=== PATIENT | female | born 1950 | race African-American/Black ===

== ENCOUNTER 2023-11-08 22:53 | Inpatient (IN) | payer MEDICARE, OTHER, SELFPAY ==
[2023-11-08] MEDS ORDERED: Morphine 4 MG/ML VIAL ONE (23:54)
[2023-11-08] MEDS ORDERED: Ondansetron PF 4 MG/2 ML Vial ONE (23:54)
[2023-11-09 00:50] LABS: ALT (SGPT) 11 U/L (8-55); AST (SGOT) 25 U/L (5-34); Albumin 3.7 g/dL (3.4-4.8); Alkaline Phosphatase 80 U/L (40-110); Anion Gap 14 mmol/L (10-20); BUN (Urea Nitrogen) 22 mg/dL (9.8-20.1); Bilirubin, Total 0.4 mg/dL (0.2-1.2); Calc. Creatinine Clearance 0 mL/min (70-130); Calcium 9.4 mg/dL (7.8-10.44); Carbon Dioxide 21 mmol/L (23-31); Chloride 108 mmol/L (98-107); Estimated GFR 44; Globulin 3.7 g/dL (2.4-3.5); Glucose 171 mg/dL (83-110); Protein, Total 7.4 g/dL (5.8-8.1); Sodium 139 mmol/L (136-145)
[2023-11-09 01:10] LABS: #Basophils 0.04 10x3/uL (0.0-0.2); %Basophils 0.3 % (0.0-1.0); %Lymphocytes 18.2 % (21.0-51.0); %Monocytes 3.7 % (0.0-10.0); %Neutrophils 76.6 % (42.0-75.0); Hematocrit 29.9 % (36.0-47.0); Hemoglobin 9.7 g/dL (12.0-16.0); Mean Corpuscular HGB CONC 32.4 g/dL (32.0-36.0); Mean Corpuscular Hemoglobin 26.4 pg (27.0-31.0); Mean Corpuscular Volume 81.5 fL (78.0-98.0); Mean Platelet Volume 10.3 fL (7.4-10.4); Platelet Count 131 10x3/uL (130-400); RBC Distribution Width 14.6 % (11.5-14.5); Red Blood Cell (RBC) Count 3.67 mill/uL (4.20-5.40)
[2023-11-09] MEDS ORDERED: Ondansetron PF 4 MG/2 ML Vial IVP PRN ×2 (02:30→02:34)
[2023-11-09] MEDS ORDERED: Morphine 4 MG/ML VIAL SLOW IVP PRN ×2 (02:30→02:34)
[2023-11-09] MEDS ORDERED: Ondansetron ODT 4 MG TAB SL PRN (02:30)
[2023-11-09] MEDS ORDERED: Ondansetron ODT 4 MG TAB PO PRN (02:34)
[2023-11-09] MEDS ORDERED: hydrALAZINE 20 MG/ML VIAL SLOW IVP PRN (02:34)
[2023-11-09] MEDS: Lactated Ringer's 1,000 ML IV SCH (03:00)
[2023-11-09 05:09] VITALS: BMI 21879.1
[2023-11-09 06:03] LABS: #Basophils Less than 0.03 10x3/uL (0.0-0.2); #Eosinphils Less than 0.03 10x3/uL (0.0-0.7); %Basophils 0.2 % (0.0-1.0); %Monocytes 2.4 % (0.0-10.0); Hematocrit 28.7 % (36.0-47.0); Hemoglobin 9.3 g/dL (12.0-16.0); Mean Corpuscular HGB CONC 32.4 g/dL (32.0-36.0); Mean Corpuscular Hemoglobin 26.3 pg (27.0-31.0); Mean Corpuscular Volume 81.3 fL (78.0-98.0); Mean Platelet Volume 10.7 fL (7.4-10.4); Platelet Count 216 10x3/uL (130-400); RBC Distribution Width 14.5 % (11.5-14.5); Red Blood Cell (RBC) Count 3.53 mill/uL (4.20-5.40)
[2023-11-09 06:20] LABS: Anion Gap 16 mmol/L (10-20); BUN (Urea Nitrogen) 26 mg/dL (9.8-20.1); Calc. Creatinine Clearance 38 mL/min (70-130); Carbon Dioxide 19 mmol/L (23-31); Chloride 106 mmol/L (98-107); Estimated GFR 42; Glucose 318 mg/dL (83-110); Potassium 4.4 mmol/L (3.5-5.1)
[2023-11-09 06:33] LABS: Sodium 137 mmol/L (136-145)
[2023-11-09] MEDS ORDERED: Dextrose 50% Abboject 50 ML SYRINGE SLOW IVP PRN (07:48)
[2023-11-09] MEDS ORDERED: Glucagon 1 MG/ML KIT IM PRN (07:48)
[2023-11-09] MEDS ORDERED: Dextrose 5% in Water 1,000 ML IV PRN (07:48)
[2023-11-09 08:34] LABS: Prothrombin Time 13.5 sec (12.0-14.7)
[2023-11-09] MEDS ORDERED: Levothyroxine Sodium 88 MCG TAB PO SCH (09:00)
[2023-11-09] MEDS ORDERED: Non-Formulary Item 1 EACH (Olmesartan Medoxomil [Olmesartan Medoxomil] 40 MG Tablet) PO SCH (09:00)
[2023-11-09] MEDS: Memantine 10 MG TAB PO SCH ×2 (10:23→21:11)
[2023-11-09] MEDS: Losartan 25 MG TAB PO SCH (10:24)
[2023-11-09] MEDS: Escitalopram Oxalate 10 mg Tablet PO SCH (10:27)
[2023-11-09] MEDS: Levothyroxine Sodium 88 MCG TAB PO SCH (10:27)
[2023-11-09] MEDS: Gabapentin 100 MG CAP PO SCH (10:27)
[2023-11-09] MEDS: Famotidine 20 MG TAB PO SCH (10:27)
[2023-11-09] MEDS: Donepezil HCl 10 MG TAB PO SCH (10:29)
[2023-11-09] MEDS: Rosuvastatin 20 MG TAB PO SCH (10:30)
[2023-11-09] MEDS: Pilocarpine 1% Ophth Drops 15 ML BOT R EYE SCH (10:30)
[2023-11-09] MEDS: Dorzolamide HCl 2% Ophth (10 mL) Bottle EA EYE SCH (10:31)
[2023-11-09] MEDS ORDERED: CEFAZOLIN 2 GM VIAL ONE (10:58)
[2023-11-09] MEDS ORDERED: Sodium Chloride 0.9% 100 ML ONE (10:58)
[2023-11-09] MEDS ORDERED: Insulin Regular 300 UNITS/3 ML VIAL ONE (11:00)
[2023-11-09] MEDS ORDERED: Lidocaine 1% PF 5 ML VIAL ONE (11:16)
[2023-11-09] MEDS ORDERED: PHENYLEPHRINE-NS 100 MCG/ML 10 ML SYRINGE ONE ×2 (11:16→11:34)
[2023-11-09] MEDS ORDERED: PROPOFOL 20 ML ONE (11:17)
[2023-11-09] MEDS ORDERED: fentaNYL PF 100 MCG/2 ML SYRINGE ONE (11:17)
[2023-11-09] MEDS ORDERED: ePHEDrine Sulfate 50 MG/10 ML VIAL ONE (11:31)
[2023-11-09] MEDS: CEFAZOLIN 2 GM in Sodium Chloride 0.9% 100 ML IVPB SCH ×2 (16:58→17:13)
[2023-11-09] MEDS ORDERED: Memantine 10 MG TAB PO SCH (21:00)
[2023-11-09] MEDS: Latanoprost 0.005% Ophth Soln 2.5 ml Bottle EA EYE SCH (21:08)
[2023-11-09] MEDS: HumaLOG 300 UNITS/3 ML VIAL SC PRN (21:30)
[2023-11-09] MEDS: DorzolamidE/Timolol 2%/0.5% Ophth Soln 10 ml Bottle EA EYE SCH (22:25)
[2023-11-10 00:11] LABS: Bacteria/HPF None Seen HPF (None Seen); Bilirubin Negative (Negative); Blood, Urine Negative (Negative); CAUTI Indications for Culture Pelvic or flank pain; Clarity Clear (Clear); Glucose, Urine (Dipstick) 500 mg/dL (Negative); Ketone, Urine 20 mg/dL (Negative); Leukocyte Negative Leu/uL (Negative); Nitrite Negative (Negative); Protein, Urine (Dipstick) 30 mg/dL (Neg-Trace); RBC/HPF 0-3 HPF (0-3); Squamous Epithelial 0-3 HPF (0-3); Urobilinogen Normal mg/dL (Less than 2); WBC/HPF 0-3 HPF (0-3)
[2023-11-10 00:14] LABS: Urine Culture Reflex No No
[2023-11-10 05:46] LABS: #Basophils 0.03 10x3/uL (0.0-0.2); #Eosinphils Less than 0.03 10x3/uL (0.0-0.7); %Basophils 0.2 % (0.0-1.0); %Eosinophils 0.1 % (0.0-10.0); %Lymphocytes 16.4 % (21.0-51.0); %Monocytes 9.8 % (0.0-10.0); %Neutrophils 73.2 % (42.0-75.0); Hematocrit 23.4 % (36.0-47.0); Hemoglobin 7.7 g/dL (12.0-16.0); Mean Corpuscular HGB CONC 32.9 g/dL (32.0-36.0); Mean Corpuscular Hemoglobin 26.6 pg (27.0-31.0); Mean Corpuscular Volume 80.7 fL (78.0-98.0); Mean Platelet Volume 10.7 fL (7.4-10.4); Platelet Count 198 10x3/uL (130-400); RBC Distribution Width 14.4 % (11.5-14.5)
[2023-11-10] MEDS: DorzolamidE/Timolol 2%/0.5% Ophth Soln 10 ml Bottle EA EYE SCH (08:28)
[2023-11-10] MEDS: traMADol HCl 50 MG TAB PO PRN (13:50)
[2023-11-10] MEDS ORDERED: HumaLOG 300 UNITS/3 ML VIAL SC PRN (16:14)
[2023-11-10] MEDS ORDERED: Dextrose 5% in Water 1,000 ML IV PRN (16:50)
[2023-11-10] MEDS ORDERED: Dextrose 50% Abboject 50 ML SYRINGE SLOW IVP PRN (16:50)
[2023-11-10] MEDS ORDERED: Glucagon 1 MG/ML KIT IM PRN (16:50)
[2023-11-10] MEDS: HumaLOG 300 UNITS/3 ML VIAL SC PRN (17:42)
[2023-11-10] MEDS: Insulin Glargine 30 UNITS/0.3 ML VIAL SC SCH (22:12)
[2023-11-11 09:42] LABS: #Basophils Less than 0.03 10x3/uL (0.0-0.2); %Basophils 0.1 % (0.0-1.0); %Eosinophils 0.3 % (0.0-10.0); %Lymphocytes 16.5 % (21.0-51.0); %Monocytes 7.9 % (0.0-10.0); %Neutrophils 74.7 % (42.0-75.0); Hematocrit 20.7 % (36.0-47.0); Mean Corpuscular HGB CONC 33.8 g/dL (32.0-36.0); Mean Corpuscular Hemoglobin 26.8 pg (27.0-31.0); Mean Corpuscular Volume 79.3 fL (78.0-98.0); Mean Platelet Volume 10.8 fL (7.4-10.4); Platelet Count 181 10x3/uL (130-400); RBC Distribution Width 14.3 % (11.5-14.5); Red Blood Cell (RBC) Count 2.61 mill/uL (4.20-5.40)
[2023-11-11 10:03] LABS: Anion Gap 11 mmol/L (10-20); BUN (Urea Nitrogen) 26 mg/dL (9.8-20.1); Calc. Creatinine Clearance 38 mL/min (70-130); Calcium 8.3 mg/dL (7.8-10.44); Carbon Dioxide 22 mmol/L (23-31); Chloride 107 mmol/L (98-107); Estimated GFR 42; Glucose 290 mg/dL (83-110); Potassium 3.9 mmol/L (3.5-5.1); Sodium 136 mmol/L (136-145)
[2023-11-11] MEDS: Acetaminophen 325 MG TAB PO PRN (13:03)
[2023-11-11] MEDS: Lactulose 20 GM (30 mL) UDCUP PO SCH (14:35)
[2023-11-11] MEDS: Ferrous Sulfate 325 MG TAB PO SCH (16:58)
[2023-11-11] MEDS: traMADol HCl 50 MG TAB PO PRN (18:19)
[2023-11-11 19:39] LABS: Hematocrit 26.6 % (36.0-47.0); Hemoglobin 9.1 g/dL (12.0-16.0)
[2023-11-11 20:14] LABS: Bilirubin Negative (Negative); Blood, Urine Negative (Negative); CAUTI Indications for Culture Fever or rigors; Clarity Clear (Clear); Glucose, Urine (Dipstick) Greater than 1000 mg/dL (Negative); Ketone, Urine Negative (Negative); Leukocyte 75 Leu/uL (Negative); Nitrite Negative (Negative); Protein, Urine (Dipstick) 30 mg/dL (Neg-Trace); RBC/HPF 0-3 HPF (0-3); Specific Gravity, Urine 1.011 (1.002-1.036); Squamous Epithelial 0-3 HPF (0-3); Urobilinogen Normal mg/dL (Less than 2); pH, Urine 5.5 (5.0-9.0)
[2023-11-11 20:18] LABS: Bacteria/HPF 1+ HPF (None Seen)
[2023-11-11 20:19] LABS: Urine Culture Reflex Yes Yes
[2023-11-11] MEDS ORDERED: Aspirin 81 mg Enteric Coated Tablet PO SCH (21:00)
[2023-11-11] MEDS: Ascorbic Acid 500 mg Chewable Tablet PO SCH (21:10)
[2023-11-11] MEDS: Heparin 5,000 UNITS/ML VIAL SC SCH (21:19)
[2023-11-12 05:53] LABS: #Basophils Less than 0.03 10x3/uL (0.0-0.2); %Basophils 0.2 % (0.0-1.0); %Eosinophils 0.9 % (0.0-10.0); %Lymphocytes 17.1 % (21.0-51.0); %Monocytes 6.7 % (0.0-10.0); %Neutrophils 74.7 % (42.0-75.0); Hemoglobin 8.4 g/dL (12.0-16.0); Mean Corpuscular HGB CONC 33.6 g/dL (32.0-36.0); Mean Corpuscular Hemoglobin 26.6 pg (27.0-31.0); Mean Corpuscular Volume 79.1 fL (78.0-98.0); Mean Platelet Volume 10.9 fL (7.4-10.4); Platelet Count 165 10x3/uL (130-400); RBC Distribution Width 14.3 % (11.5-14.5); Red Blood Cell (RBC) Count 3.16 mill/uL (4.20-5.40)
[2023-11-12] MEDS: Insulin Regular 300 UNITS/3 ML VIAL IVP SCH (06:40)
[2023-11-12] MEDS: Insulin Regular, Human 100 UNIT/ML 10 ML VIAL IVP SCH (06:44)
[2023-11-12] MEDS ORDERED: Insulin Regular, Human 100 UNIT/ML 10 ML VIAL FS SCH (06:45)
[2023-11-12 07:13] LABS: Anion Gap 17 mmol/L (10-20); BUN (Urea Nitrogen) 23 mg/dL (9.8-20.1); Calc. Creatinine Clearance 32 mL/min (70-130); Calcium 8.1 mg/dL (7.8-10.44); Carbon Dioxide 18 mmol/L (23-31); Chloride 105 mmol/L (98-107); Estimated GFR 34; Glucose 402 mg/dL (83-110); Potassium 4.7 mmol/L (3.5-5.1); Sodium 135 mmol/L (136-145)
[2023-11-12] MEDS: Polyethylene Glycol 3350 17 GM Packet PO SCH (21:10)
[2023-11-12] MEDS: Docusate 100 MG CAP PO SCH (21:10)
[2023-11-13 06:10] LABS: #Basophils Less than 0.03 10x3/uL (0.0-0.2); %Basophils 0.2 % (0.0-1.0); %Eosinophils 1.9 % (0.0-10.0); %Lymphocytes 20.2 % (21.0-51.0); %Monocytes 7.8 % (0.0-10.0); %Neutrophils 69.6 % (42.0-75.0); Hematocrit 25.4 % (36.0-47.0); Hemoglobin 8.6 g/dL (12.0-16.0); Mean Corpuscular HGB CONC 33.9 g/dL (32.0-36.0); Mean Corpuscular Hemoglobin 27.1 pg (27.0-31.0); Mean Corpuscular Volume 80.1 fL (78.0-98.0); Mean Platelet Volume 11.3 fL (7.4-10.4); Platelet Count 207 10x3/uL (130-400); RBC Distribution Width 14.4 % (11.5-14.5); Red Blood Cell (RBC) Count 3.17 mill/uL (4.20-5.40)
[2023-11-13 06:29] LABS: Anion Gap 14 mmol/L (10-20); BUN (Urea Nitrogen) 19 mg/dL (9.8-20.1); Calc. Creatinine Clearance 41 mL/min (70-130); Calcium 8.3 mg/dL (7.8-10.44); Carbon Dioxide 22 mmol/L (23-31); Chloride 106 mmol/L (98-107); Estimated GFR 46; Glucose 126 mg/dL (83-110); Potassium 4.1 mmol/L (3.5-5.1); Sodium 138 mmol/L (136-145)
[2023-11-13] MEDS: Polyethylene Glycol 3350 17 GM Packet PO SCH (09:15)
[2023-11-13 13:09] VITALS: BP 164/80; TEMP 99.8
== END 2023-11-13 13:17 | DRG 481 ==
LOC: ERS 22:53 → T4-B 11-09 02:22
PROVIDERS: ADMIT Surgery; ATTEND Internal Medicine
PROC: 0QS736Z Reposition Left Upper Femur with Intramedullary Internal Fixation Device, Percutaneous Approach (ICD-10-PCS; principal; 2023-11-09)
PROC: 30243N1 Transfusion of Nonautologous Red Blood Cells into Central Vein, Percutaneous Approach (ICD-10-PCS; 2023-11-11)
DX: S72.142A Displaced intertrochanteric fracture of left femur, initial encounter for closed fracture (principal); D62 Acute posthemorrhagic anemia; W01.0XXA Fall on same level from slipping, tripping and stumbling without subsequent striking against object, initial encounter; E03.9 Hypothyroidism, unspecified; H40.9 Unspecified glaucoma; F01.50 Vascular dementia, unspecified severity, without behavioral disturbance, psychotic disturbance, mood disturbance, and anxiety; N18.30 Chronic kidney disease, stage 3 unspecified; E10.22 Type 1 diabetes mellitus with diabetic chronic kidney disease; D72.829 Elevated white blood cell count, unspecified; I12.9 Hypertensive chronic kidney disease with stage 1 through stage 4 chronic kidney disease, or unspecified chronic kidney disease; Z79.82 Long term (current) use of aspirin; Z79.4 Long term (current) use of insulin; Z86.73 Personal history of transient ischemic attack (TIA), and cerebral infarction without residual deficits; Z79.899 Other long term (current) drug therapy; Z79.890 Hormone replacement therapy
CPT/HCPCS: 36415; 36416; 36430; 70450; 71045; 72125; 80048; 80053; 81001; 83036; 85025; 85610; 86850; 86900; 86901; 87086; 93005; 96374; 96375; C1713; J1644; J1815; J2270; J2405; J2704; J3490; J7120; P9016

== ENCOUNTER 2025-03-27 13:21 | Emergency (ER) | payer OTHER ==
[2025-03-27 15:25] LABS: #Basophils 0.05 10x3/uL (0.0-0.2); #Eosinophils 0.22 10x3/uL (0.0-0.7); #Monocytes 0.63 10x3/uL (0.11-0.59); #Neutrophils 8.73 10x3/uL (1.40-6.50); %Basophils 0.4 % (0.0-1.0); %Eosinophils 1.9 % (0.0-10.0); %Lymphocytes 17.4 % (21.0-51.0); %Monocytes 5.4 % (0.0-10.0); %Neutrophils 74.6 % (42.0-75.0); Hematocrit 30.2 % (36.0-47.0); Hemoglobin 10.1 g/dL (12.0-16.0); Mean Corpuscular Hemoglobin 27.5 pg (27.0-31.0); Mean Corpuscular Volume 82.3 fL (78.0-98.0); Platelet Count 303 10x3/uL (130-400); Red Blood Cell (RBC) Count 3.67 mill/uL (4.20-5.40); White Blood Cell (WBC) Count 11.69 10x3/uL (4.8-10.8)
[2025-03-27 15:44] LABS: ALT (SGPT) 20 U/L (Less than 34); AST (SGOT) 33 U/L (11-34); Albumin 3.9 g/dL (3.1-4.5); Alkaline Phosphatase 152 U/L (40-110); Anion Gap 15 mmol/L (10-20); BUN (Urea Nitrogen) 35 mg/dL (9.8-20.1); Bilirubin, Total 0.3 mg/dL (0.3-1.2); Calc. Creatinine Clearance 0 mL/min (70-130); Calcium 9.5 mg/dL (7.8-10.44); Carbon Dioxide 21 mmol/L (23-31); Chloride 105 mmol/L (98-107); Globulin 4.5 g/dL (2.4-3.5); Glucose 131 mg/dL (83-110); Potassium 5.0 mmol/L (3.5-5.1); Sodium 136 mmol/L (136-145)
== END 2025-03-27 17:07 ==
LOC: ERS 13:21
DX: I10 Essential (primary) hypertension (principal); E10.9 Type 1 diabetes mellitus without complications
CPT/HCPCS: 80053; 84484; 85025; 93005; 99283